=== PATIENT | female | born 1990 | race Caucasian/White ===

== ENCOUNTER 2016-08-31 15:01 | Emergency (ER) ==
[2016-08-31 15:12] VITALS: BP 139/94; TEMP 97.8; BMI 47.2
--- NOTE | 2016-08-31 15:30 | ED.PDOC ---
General ED Provider: Dr. SHY JOVEL JR Chief Complaint: Tooth Problem Stated Complaint: HAD A WISDOMM TOOTH REMOVED 2 YEARS AGO AND HAS HAD SOME INTERMITTENT PROBLEMS SINCE THEN...ACTUAL MORE COMPLAINT OF RIGHT JAW PAIN THAN TOOTH PAIN. [ End ]2 days 97.8 119 20 97% 139/94 8/10. gall bladder, , and tubal 2015. numerous ovarian cysts. migraines. SAYS IT HURTS TO OPEN MOUTH AND TO TALK. [ End ]. right upper molar tender Time Seen by Physician: 15:20 Mode of Arrival: Walk-In Information Source: Patient Exam Limitations: No limitations Primary Care Provider: JUHI ENGLAND Nursing and Triage Documentation Reviewed and Agree: No Review of Systems - Review Of Systems Constitutional: Reports: No symptoms Eyes: Reports: No symptoms Ears, Nose, Mouth, Throat: Reports: Mouth pain Respiratory: Reports: No symptoms Cardiac: Reports: No symptoms GI: Reports: No symptoms : Reports: No symptoms Musculoskeletal: Reports: No symptoms Skin: Reports: No symptoms Neurological: Reports: No symptoms Endocrine: Reports: No symptoms Hematologic/Lymphatic: Reports: No symptoms All Other Systems: Other Past Medical History - Past Medical History Previously Healthy: Yes Endocrine: Reports: None Cardiovascular: Reports: None Respiratory: Reports: None Hematological: Reports: None Gastrointestinal: Reports: None Genitourinary: Reports: None Neuro/Psych: Reports: Migraine Musculoskeletal: Reports: None Cancer: Reports: None Last Menstrual Period: N/A - Surgical History General Surgical History: Reports: Tubal ligation, , Cholecystectomy - Family History Family History: Reports: None - Social History Smoking Status: Current some day smoker, Light tobacco smoker Hx Substance Use: No Alcohol Screening: None - Immunizations Tetanus Shot up to Date: Yes Physical Exam - Physical Exam Appearance: Well-appearing, Obese Ill-appearing: Moderate Eyes: DAHLIA, EOMI, Conjunctiva clear ENT: Ears normal, Nose normal, Oropharynx normal (right upper third molar tender pain in area between posterior teeth and area of missing lowe third molar no visble caries), TMs Occluded (cerumen but nontender) Neck: Supple Respiratory: Airway patent Psychiatric: Affect appropriate, Mood appropriate Critical Care Note - Critical Care Note Total Time (mins): 0 Course - Course Vital Signs: Temp Pulse Resp BP Pulse Ox 08/31/16 15:01 97.8 F 119 H 20 139/94 H 97 Departure - Departure Time of Disposition: 15:20 Disposition: HOME SELF-CARE Discharge Problem: Dental abscess Instructions: Dental Abscess (ED) Condition: Good Pt referred to PMD for follow-up: Yes Additional Instructions: Skyler VK antibiotic until gone [place] for pain not relieved by Naprosyn (only one NSAID franck time- take Naprosyn with food follow up with dentist recommend xrays and drainage of any remaining pockets ice will help Prescriptions: Hydrocodone Bit/Acetaminophen [[place] 5-325] 1 - 2 tab PO Q6HR PRN #12 tablet PRN Reason: pain Naproxen [Naprosyn] 500 mg PO Q12HR PRN #30 tablet PRN Reason: PAIN Penicillin V Potassium 500 mg PO QID #28 tablet Allergies/Adverse Reactions: Allergies No Known Allergies Allergy (Verified 08/31/16 15:09) Home Medications: Ambulatory Orders Hydrocodone Bit/Acetaminophen [[place] 5-325] 1 - 2 tab PO Q6HR PRN #12 tablet Naproxen [Naprosyn] 500 mg PO Q12HR PRN #30 tablet 08/31/16 Penicillin V Potassium 500 mg PO QID #28 tablet 08/31/16
== END 2016-08-31 16:02 | disposition home or self-care (01) ==
LOC: ED 15:01
DX: K04.7 Periapical abscess without sinus (principal); F17.210 Nicotine dependence, cigarettes, uncomplicated
CPT/HCPCS: 99282

== ENCOUNTER 2016-10-25 09:43 | Emergency (ER) ==
[2016-10-25 09:48] VITALS: BP 130/91; TEMP 98.1; BMI 39.3
[2016-10-25] MEDS ORDERED: TORADOL IM STA (10:07)
[2016-10-25] MEDS ORDERED: ZOFRAN 4 MG/2 ML IM STA (10:07)
--- NOTE | 2016-10-25 10:09 | ED.PDOC ---
General ED Provider: Dr. CONOR VELIZ Chief Complaint: Headache Stated Complaint: rt side of the head hurting , has h/o migraine, took Immitres , not helping this time Time Seen by Physician: 10:07 Mode of Arrival: Walk-In Information Source: Patient Primary Care Provider: JUHI ENGLAND Nursing and Triage Documentation Reviewed and Agree: Yes Neurological Complaint Exam - Headache Complaint/Exam Onset: Gradual Symptoms Are: Still present Timing: Constant Worst Headache Ever: No Initial Severity: Moderate Current Severity: Severe Location: Right, Frontal Character: Reports: Throbbing, Migraine Aggravating: Reports: Bright lights Alleviating: Reports: None Associated Signs and Symptoms: Reports: Nausea, Vomiting. Denies: Dizziness, Seizure, Sinus pressure, Fever, Neck pain, Neck stiffness, Decreased LOC, Visual changes Related History: Reports: Similar episode Related Surgical History: Reports: None SAH Risk Factors: Reports: None Meningitis Risk Factors: Reports: None SDH Risk Factors: Reports: None Temporal Arteritis Risk Factors: Reports: None Normal Head CT Within Last 12 Months: Yes ROM Limited In: No Limitiations Focal Weakness: Present: None Focal Sensory Loss: Present: None Gait: Normal Nystagmus Present: No Gag Reflex Present: Yes [id number]: Normal Findings Romberg Test Positive: No Babinski Sign: Negative Right, Negative Left Differential Diagnoses: Migraine Review of Systems - Review Of Systems Constitutional: Reports: No symptoms Eyes: Reports: No symptoms Ears, Nose, Mouth, Throat: Reports: No symptoms Respiratory: Reports: No symptoms Cardiac: Reports: No symptoms GI: Reports: No symptoms : Reports: No symptoms Musculoskeletal: Reports: No symptoms Skin: Reports: No symptoms Neurological: Reports: Headache Endocrine: Reports: No symptoms Hematologic/Lymphatic: Reports: No symptoms All Other Systems: Reviewed and Negative Past Medical History - Past Medical History Previously Healthy: No Endocrine: Reports: None Cardiovascular: Reports: None Respiratory: Reports: None Hematological: Reports: None Gastrointestinal: Reports: None Genitourinary: Reports: None Neuro/Psych: Reports: Migraine Musculoskeletal: Reports: None Cancer: Reports: None Last Menstrual Period: 10/11/16 - Surgical History General Surgical History: Reports: Tubal ligation, , Cholecystectomy - Family History Family History: Reports: None - Social History Smoking Status: Current some day smoker, Light tobacco smoker Smoking Cessation Counseling Time: > 10 min Hx Substance Use: No Alcohol Screening: None - Immunizations Tetanus Shot up to Date: Yes Physical Exam - Physical Exam Appearance: Ill-appearing, Obese Pain Distress: Moderate Eyes: DAHLIA, EOMI ENT: Ears normal, Nose normal, Oropharynx normal Respiratory: Airway patent, Breath sounds clear, Breath sounds equal, Respirations nonlabored Cardiovascular: RRR, Pulses normal, No rub, No murmur GI/: Soft, Nontender, No masses, Bowel sounds normal, No Organomegaly Musculoskeletal: Normal strength, ROM intact, No edema, No calf tenderness Skin: Warm, Dry, Normal color Neurological: Sensation intact, Motor intact, Reflexes intact, Cranial nerves intact, Alert, Oriented Psychiatric: Affect appropriate, Mood appropriate Re-Evaluation - Re-Evaluation Time of Re-Evaluation: 12:10 Status: Improved Critical Care Note - Critical Care Note Total Time (mins): 0 Course - Course Orders, Labs, Meds: Orders Category Date Time Status Ketorolac Tromethamine [Toradol] MEDS 10/25/16 10:07 Discontinued 60 mg IM ONCE STA Meperidine HCl/Pf [Demerol 25 mg/ml Syringe] MEDS 10/25/16 11:37 Discontinued 25 mg IM ONCE STA Morphine Sulfate [Morphine 2 mg/ml Syringe] MEDS 10/25/16 11:37 Discontinued 2 mg IM ONCE STA Ondansetron HCl/Pf [Zofran 4 mg/2 ml] MEDS 10/25/16 10:07 Discontinued 4 mg IM ONCE STA Medications Discontinued Medications Generic Name Dose Route Start Last Admin Trade Name Eleuterioq PRN Reason Stop Dose Admin Ketorolac Tromethamine 60 mg 10/25/16 10:07 10/25/16 10:17 Toradol IM 10/25/16 10:08 60 mg ONCE STA Administration Meperidine HCl 25 mg 10/25/16 11:37 10/25/16 11:46 Demerol 25 Mg/Ml Syringe IM 10/25/16 11:38 25 mg ONCE STA Administration Morphine Sulfate 2 mg 10/25/16 11:37 10/25/16 11:46 Morphine 2 Mg/Ml Syringe IM 10/25/16 11:38 2 mg ONCE STA Administration Ondansetron HCl 4 mg 10/25/16 10:07 10/25/16 10:17 Zofran 4 Mg/2 Ml IM 10/25/16 10:08 4 mg ONCE STA Administration Vital Signs: Temp Pulse Resp BP Pulse Ox 10/25/16 09:43 98.1 F 122 H 16 130/91 H 97 Departure - Departure Time of Disposition: 12:10 Disposition: HOME SELF-CARE Discharge Problem: Migraine Qualifiers: Migraine type: without aura Status migrainosus presence: without status migrainosus Intractability: not intractable Qualifier Code: (G43.009) Migraine without aura, not intractable, without status migrainosus Instructions: Migraine Headache (ED) Condition: Stable Pt referred to PMD for follow-up: No Additional Instructions: Soft diet Increase hydration Keep f/u with PMD Allergies/Adverse Reactions: Allergies No Known Allergies Allergy (Verified 08/31/16 15:09) Home Medications: Ambulatory Orders Sumatriptan Succinate [Imitrex] 4 mg SQ PRN PRN 10/25/16 Venlafaxine HCl [Effexor Xr] 75 mg PO DAILY 10/25/16 Disposition Discussed With: Patient, Family
[2016-10-25] MEDS ORDERED: DEMEROL 25 MG/ML SYRINGE IM STA (11:37)
[2016-10-25] MEDS ORDERED: MORPHINE 2 MG/ML SYRINGE IM STA (11:37)
== END 2016-10-25 12:21 | disposition home or self-care (01) ==
LOC: ED 09:43
DX: G43.009 Migraine without aura, not intractable, without status migrainosus (principal); F17.210 Nicotine dependence, cigarettes, uncomplicated
CPT/HCPCS: 96372; 99283